=== PATIENT | female | born 1995 | race Caucasian/White ===

== ENCOUNTER 2022-10-11 18:19 | Emergency (ER) | payer OTHER ==
[~2022-10-11] VITALS: Ht 167.6 cm; Wt 74.8 kg
[2022-10-11 19:03] LABS: BASOPHILS ABSOLUTE AUTO 0.05 K/mm3 (0.00-0.23); BASOPHILS PERCENT AUTO 0 % (0-2); EOSINOPHILS ABSOLUTE AUTO 0.11 K/mm3 (0.00-0.68); EOSINOPHILS PERCENT AUTO 1 % (0-6); Hemoglobin 14.8 g/dL (11.5-16.0); IMMATURE GRAN ABSOLUTE AUTO 0.04 K/mm3 (0.00-0.10); IMMATURE GRAN PERCENT AUTO 0 % (0-1); LYMPHOCYTES ABSOLUTE AUTO 3.09 K/mm3 (0.84-5.20); LYMPHOCYTES PERCENT AUTO 24 % (21-46); MONOCYTES ABSOLUTE AUTO 0.78 K/mm3 (0.16-1.47); MONOCYTES PERCENT AUTO 6 % (4-13); Mean Corpuscular HGB Conc 33.6 g/dL (31.5-36.5); Mean Corpuscular Volume 89 fL (80-100); Mean Platelet Volume 10.2 fL (9.1-12.4); NEUTROPHILS PERCENT AUTO 68 % (41-73); Platelet Count 280 K/mm3 (150-400); RDW Coefficient Variation 12.1 % (11.7-14.2); RDW Standard Deviation 39.5 fL (35.1-46.3); Red Blood Cell Count 4.94 M/mm3 (3.80-5.20); White Blood Cell Count 12.87 K/mm3 (4.00-11.30)
[2022-10-11 19:29] LABS: Albumin, Blood 4.4 g/dL (3.4-5.0); Albumin/Globulin Ratio 1.1 (0.8-1.8); Bilirubin, Total 2.1 mg/dL (0.1-1.0); Bun/Creatinine Ratio 23.3 (12.0-20.0); Calcium, Blood 9.9 mg/dL (8.5-10.1); Creatinine, Blood 0.73 mg/dL (0.40-1.00); Potassium, Blood 3.7 mmol/L (3.5-5.5); Total Protein, Blood 8.4 g/dL (6.4-8.2)
[2022-10-11] MEDS ORDERED: NAPR500 PO (21:42)
[2022-10-11 22:30] VITALS: BP 96/71
== END 2022-10-11 22:44 | disposition home or self-care (01) ==
LOC: ER 18:19
PROVIDERS: Emergency Medicine
DX: N83.201 Unspecified ovarian cyst, right side (principal); D72.829 Elevated white blood cell count, unspecified; F17.200 Nicotine dependence, unspecified, uncomplicated; Z88.0 Allergy status to penicillin
CPT/HCPCS: 74177; 76830; 76856; 80053; 84703; 85025; 96361; 96372-59; 96374-59; 96376; 99284-25; J2270; J2405; J7030; Q9967